=== PATIENT | male | born 1995 | race Asian ===

== ENCOUNTER 2016-11-07 09:41 | Day surgery (SDC) | payer BC, OTHER ==
[~2016-11-07] VITALS: Ht 175.3 cm; Wt 77.0 kg
[~2016-11-07 09:41] MED LIST: BUPIVACAINE/PF 0.5% ONE
[2016-11-07 10:06] VITALS: BP 132/78
[2016-11-07] MEDS ORDERED: LIDOCAINE 1%, 2ML SQ PRN (10:30)
[2016-11-07] MEDS ORDERED: LACTATED RINGERS 1,000 ML IV SCH (10:30)
[2016-11-07] MEDS ORDERED: LIDOCAINE 1%, 2ML ONE (10:32)
[2016-11-07] MEDS ORDERED: MIDAZOLAM 1 MG/ML, 2ML ONE (10:54)
[2016-11-07] MEDS ORDERED: FENTANYL PF 250 MCG/5ML ONE ×2 (10:55→12:41)
[2016-11-07] MEDS ORDERED: hydrALAzine 20 MG/ML, 1ML IV PRN (13:00)
[2016-11-07] MEDS ORDERED: ONDANSETRON 2MG/ML, 2ML IVPush PRN (13:00)
[2016-11-07] MEDS ORDERED: HYDROmorphone 1 MG/ML, 1ML IV PRN (13:00)
[2016-11-07] MEDS ORDERED: OXYcodone 5 MG/5 ML ORAL.SOL UDC PO PRN (13:00)
[2016-11-07] MEDS ORDERED: MEPERIDINE/PF 25MG/0.5ML IVPush PRN (13:00)
[2016-11-07] MEDS ORDERED: FENTANYL PF 100 MCG/2ML IV PRN (13:00)
[2016-11-07] MEDS ORDERED: MIDAZOLAM 1 MG/ML, 2ML IV PRN (13:00)
[2016-11-07] MEDS ORDERED: ALBUTEROL/IPRATROPIUM 2.5MG/0.5MG, 3 ML NPPB PRN (13:00)
[2016-11-07] MEDS ORDERED: PROMETHAZINE 25 MG/ML, 1ML IV PRN (13:00)
[2016-11-07] MEDS ORDERED: ACETAMINOPHEN 325 MG TABLET PO PRN (13:00)
[2016-11-07] MEDS ORDERED: LABETALOL 5MG/ML, 20ML IV PRN (13:00)
[2016-11-07] MEDS ORDERED: CEFAZOLIN 1,000 MG ONE (15:10)
[2016-11-07] MEDS ORDERED: DEXAMETHASONE 4 MG/ML, 1ML ONE (15:10)
[2016-11-07] MEDS ORDERED: KETOROLAC 30 MG/1 ML ONE (15:10)
[2016-11-07] MEDS ORDERED: PROPOFOL 10 MG/ML, 20ML ONE (15:10)
[2016-11-07] MEDS ORDERED: SUCCINYLCHOLINE 20 MG/ML, 10ML ONE (15:10)
[2016-11-07] MEDS ORDERED: ONDANSETRON 2MG/ML, 2ML ONE (15:10)
== END 2016-11-07 15:25 | disposition home or self-care (01) ==
LOC: OUT 09:41
PROVIDERS: ATTEND Orthopaedic Surgery Foot and Ankle Surgery
DX: S86.012A Strain of left Achilles tendon, initial encounter (principal); Z72.89 Other problems related to lifestyle; X58.XXXA Exposure to other specified factors, initial encounter; Y93.67 Activity, basketball; Y92.9 Unspecified place or not applicable; Y99.9 Unspecified external cause status
CPT/HCPCS: 27650; J0330; J0690; J1100; J1885; J2250; J2405; J2704; J3010; J3490; J7120

== ENCOUNTER 2020-11-30 01:57 | Emergency (ER) | payer OTHER ==
[~2020-11-30] VITALS: Ht 175.3 cm; Wt 78.7 kg
--- NOTE | 2020-11-30 02:12 | NUR ---
PT HERE FOR UPPER ABD PAIN WITH BLOATING X SEVERAL DAYS. PT HAS NAUSEA BUT NO VOMITING. PA AT BEDSIDE.
[2020-11-30] MEDS ORDERED: ONDANSETRON ODT 4 MG ONE (02:22)
[2020-11-30] MEDS ORDERED: ONDANSETRON ODT 4 MG PO ONE (02:30)
[2020-11-30 02:46] LABS: ALANINE AMINOTRANSFERASE 28 U/L (12-78); ANION GAP 6 mmol/L (5-15); CALCIUM 8.8 mg/dL (8.5-10.1); CHLORIDE 107 mmol/L (98-107); CREATININE 1.13 mg/dL (0.7-1.3)
[2020-11-30 02:48] LABS: ALKALINE PHOSPHATASE 74 U/L (45-117); BILIRUBIN,TOTAL 0.5 mg/dL (0.2-1.0); TOTAL PROTEIN 7.6 g/dL (6.4-8.2)
[2020-11-30 03:22] LABS: MEAN CORPUSCULAR HEMOGLOBIN 29.4 pg (27.5-34.5); MEAN PLATELET VOLUME 7.2 fL (7.4-10.4); PLATELET COUNT 303 x10^3/uL (130-400); RED BLOOD COUNT 5.67 x10^6/uL (4.38-5.82)
[2020-11-30 03:33] LABS: MD YES
[2020-11-30 03:41] LABS: ANISOCYTOSIS 1+; EOS#(MANUAL) 0.08 x10^3/uL (0.0-0.4); EOS% (MANUAL) 1 % (1-7); LYMPH#(MANUAL) 3.62 x10^3/uL (1-3.4); LYMPHS% (MANUAL) 47 % (22-44); MONOS#(MANUAL) 0.39 x10^3/uL (0.3-2.7); MONOS% (MANUAL) 5 % (2-9); OVALOCYTES 1+; REACTIVE LYMPHS # (MANUAL) 0.92 x10^3/uL (0-0); REACTIVE LYMPHS % (MANUAL) 12 % (0-0); SEGS% (MANUAL) 35 % (42-75)
[2020-11-30 03:42] LABS: <PLATELET ESTIMATE> ADEQUATE; <PLT MORPHOLOGY> NORMAL PLT MORPH
[2020-11-30 03:58] VITALS: BP 121/73
--- NOTE | 2020-11-30 03:58 | NUR ---
Patient given discharge instructions and they have confirmed that they understand the instructions. Patient ambulatory with steady gait.
== END 2020-11-30 04:09 | disposition home or self-care (01) ==
LOC: ED 03:40
DX: K59.00 Constipation, unspecified (principal); R11.0 Nausea; R10.13 Epigastric pain; K21.9 Gastro-esophageal reflux disease without esophagitis
CPT/HCPCS: 36415; 74021; 80053; 83690; 85025; 99284; Q0162